=== PATIENT | female | born 1950 | race Caucasian/White ===

== ENCOUNTER 2018-11-08 09:52 | Outpatient (CLI) | payer BC ==
--- NOTE | 2018-11-08 10:31 | RAD ---
Exam: Chest 2 views HISTORY:Fluid within right hemithorax Comparison: 10/25/2013 FINDINGS: Lungs: Increasing bibasilar densities, greater on the right Cardiac silhouette:Enlarged Pulmonary vessels: Engorged Pleural Spaces: Increased density at the inferior thorax, bilaterally indicating mild pleural fluid Pneumothorax: None Osseous abnormalities: None of acuity. IMPRESSION: Progressive bibasilar densities indicative of bilateral pleural fluid with adjacent edema and/or pneumonia. Follow-up to resolution is recommended.
== END 2018-11-08 09:53 | disposition home or self-care (01) ==
LOC: RAD 09:52
PROVIDERS: ATTEND Internal Medicine Critical Care Medicine
DX: R06.00 Dyspnea, unspecified (principal); J94.8 Other specified pleural conditions; J98.4 Other disorders of lung; J81.1 Chronic pulmonary edema
CPT/HCPCS: 71046

== ENCOUNTER 2018-12-07 13:01 | Outpatient (CLI) | payer BC ==
--- NOTE | 2018-12-07 14:46 | RAD ---
PA AND LATERAL VIEWS CHEST: HISTORY: Dyspnea. FINDINGS: Comparison is made with the exam of 11/08/2018. The heart size is borderline. Chronic bibasilar infiltrates, right greater than left, are again seen . No new infiltrates, pneumothoraces, or pleural effusions are identified. IMPRESSION: Stable exam. POS: OFF
== END 2018-12-07 13:02 | disposition home or self-care (01) ==
LOC: RAD 13:01
PROVIDERS: ATTEND Internal Medicine Critical Care Medicine
DX: R06.00 Dyspnea, unspecified (principal)
CPT/HCPCS: 71046

== ENCOUNTER 2019-01-22 19:30 | Outpatient (CLI) | payer BC | END 2019-01-22 19:31 | disposition home or self-care (01) | LOC: SLEEPLAB 19:30 | PROVIDERS: ATTEND Internal Medicine Critical Care Medicine | DX: G47.33 Obstructive sleep apnea (adult) (pediatric) (principal); K21.9 Gastro-esophageal reflux disease without esophagitis; I10 Essential (primary) hypertension; G47.00 Insomnia, unspecified; G47.10 Hypersomnia, unspecified; R06.83 Snoring | CPT/HCPCS: 95810 ==

== ENCOUNTER 2019-01-25 09:20 | Outpatient (CLI) | payer BC ==
--- NOTE | 2019-01-25 11:37 | CT ---
HIGH RISK CHEST CT: HISTORY: Bronchiectasis. Cough. FINDINGS: Supine and prone views of the chest were performed utilizing high resolution protocol. FINDINGS: Visualized mediastinum is unremarkable. There is a hiatal hernia. Heart is enlarged. No significan t pericardial fluid. The visualized solid organs are unremarkable. Trachea and central bronchi are patent. There is evidence of peripheral septal thickening. There is bronchiectasis involving the middle lobe. There is interstitial change involving both lung bases. Mild honeycombing is noted in the right lung base. IMPRESSION: 1. Bronchiectasis in the middle lobe. 2. Interstitial changes in the lung bases likely due to fibrosis. There is mild honeycombing in the right lower lobe. POS: OFF
== END 2019-01-25 09:21 | disposition home or self-care (01) ==
LOC: BICCT 09:20
PROVIDERS: ATTEND Internal Medicine Critical Care Medicine
DX: J47.9 Bronchiectasis, uncomplicated (principal)
CPT/HCPCS: 71250

== ENCOUNTER 2019-08-24 08:30 | Outpatient (CLI) | payer BC, MEDICARE ==
--- NOTE | 2019-08-24 09:22 | CT ---
CT chest noncontrast HISTORY: Atelectasis. Fibrosis. Cough. COMPARISON: 01/25/2019. FINDINGS: Peripheral interstitial thickening and scarring extending to the pleural surface is again d emonstrated, most pronounced at each lung base, where there has been slight progression since the recent CT exam. Involvement of the right middle lobe has progressed significantly. Tubular bronchiect asis of the right middle lobe is more conspicuous. At the right posterolateral lung base, honeycombing of the peripheral fibrotic lung has progressed sl ightly. Now slight involvement at the left posterolateral lung base and lingula. No focal parenchymal mass is apparent. No pleural fluid or pneumothorax. Lack of contrast limits evaluation of the soft tissues. No bulky mediastinal adenopathy. Calcificatio n in the aortic arch. Approximately one quarter of the stomach is above the level of the diaphragm. Small defect in the posterolateral medial aspect of the left hemidiaphragm with fat protruding into t he posterior left hemithorax. IMPRESSION: While there is only mild worsening of the fibrotic interstitial disease at each lung base and progression of right middle lobe tubular bronchiectasis, the short interval suggests a fairly rapid progression. Hiatal hernia. Atherosclerosis. Small Bochdalek hernia left posterior diaphragm.
== END 2019-08-24 08:31 | disposition home or self-care (01) ==
LOC: BICCT 08:30
PROVIDERS: ATTEND Internal Medicine Critical Care Medicine
DX: J98.11 Atelectasis (principal); J84.112 Idiopathic pulmonary fibrosis; J47.9 Bronchiectasis, uncomplicated; K44.9 Diaphragmatic hernia without obstruction or gangrene; I70.90 Unspecified atherosclerosis
CPT/HCPCS: 71250

== ENCOUNTER 2020-03-26 08:48 | Outpatient (CLI) | payer MEDICARE ==
--- NOTE | 2020-03-26 10:35 | CT ---
HIGH RESOLUTION CT CHEST: Axial tomograms were obtained following high resolution protocol with multiplanar reconstruction. INDICATION: Bronchiectasis. COMPARISON: Comparison is made to high resolution chest CT of 01/25/2019. FINDINGS: Interstitial prominence bilaterally most pronounced in the periphery is again noted. Pleural-based p arenchymal opacity in the right peripheral lung with areas of pleural thickening and stranding along the right lateral chest wall appears stable. Right middle lobe bronchiectasis similar to prior exam. Bilateral lower lobe bronchiectasis similar to the prior exam. There is now a small right effusion which is new from the prior exam. Ground-glass opacity in both p osterior lower lobes, some of which represent chronic parenchymal change. There is associated atelec tasis. Early honeycombing more prominent on the right as noted previously. The mediastinal lymph nodes are nonspecific and appear stable. A fixed diaphragmatic hernia appears stable. IMPRESSION: New small right pleural effusion since prior exam. Otherwise, the chronic lung changes including int erstitial thickening, areas of pleural thickening, and parenchymal opacity along the right lateral ch est wall, bibasilar fibrosis and ground-glass opacity with early honeycombing and the bronchiectasis all appear relatively stable from the prior study. POS: ANNI
== END 2020-03-26 08:49 | disposition home or self-care (01) ==
LOC: BICCT 08:48
PROVIDERS: ATTEND Internal Medicine Critical Care Medicine
DX: J47.9 Bronchiectasis, uncomplicated (principal); J90 Pleural effusion, not elsewhere classified; J92.9 Pleural plaque without asbestos; R91.8 Other nonspecific abnormal finding of lung field; J84.10 Pulmonary fibrosis, unspecified; J98.4 Other disorders of lung
CPT/HCPCS: 71250

== ENCOUNTER 2020-09-16 09:45 | Outpatient (CLI) | payer MEDICARE | END 2020-09-16 09:46 | disposition home or self-care (01) | LOC: BICCT 09:45 | PROVIDERS: ATTEND Internal Medicine Critical Care Medicine | DX: J47.9 Bronchiectasis, uncomplicated (principal) | CPT/HCPCS: 71250 ==

== ENCOUNTER 2021-06-17 07:49 | Outpatient (CLI) | payer MEDICARE | END 2021-06-17 07:50 | disposition home or self-care (01) | LOC: BICCT 07:49 | PROVIDERS: ATTEND Internal Medicine Critical Care Medicine | DX: J47.9 Bronchiectasis, uncomplicated (principal); J84.10 Pulmonary fibrosis, unspecified | CPT/HCPCS: 71250 ==

== ENCOUNTER 2022-06-17 09:12 | Outpatient (CLI) | payer MEDICARE | END 2022-06-17 09:13 | disposition home or self-care (01) | LOC: BICCT 09:12 | PROVIDERS: ATTEND Internal Medicine Critical Care Medicine | DX: J47.9 Bronchiectasis, uncomplicated (principal); J84.10 Pulmonary fibrosis, unspecified | CPT/HCPCS: 71250 ==